=== PATIENT | female | born 1975 | race Caucasian/White ===

== ENCOUNTER 2021-03-13 09:17 | Emergency (ER) | payer OTHER ==
[~2021-03-13] VITALS: Ht 157.5 cm; Wt 54.4 kg
[2021-03-13] MEDS ORDERED: PEPCID AC20 MG PO (23:42)
[2021-03-13] MEDS ORDERED: ZITHROMAX500 MG PO (23:42)
[2021-03-13] MEDS ORDERED: ZINC GLUCONATE100 MG PO (23:42)
[2021-03-13] MEDS ORDERED: MELATONIN10 MG PO (23:42)
[2021-03-13] MEDS ORDERED: VITAMIN C500 M6 PO (23:42)
[2021-03-13] MEDS ORDERED: VITAMIN D375 MCG PO (23:42)
== END 2021-03-14 00:24 | disposition home or self-care (01) ==
LOC: ER 09:17
DX: K21.9 Gastro-esophageal reflux disease without esophagitis (principal); U07.1 COVID-19; J12.82 Pneumonia due to coronavirus disease 2019

== ENCOUNTER 2021-03-15 10:16 | Emergency (ER) | payer OTHER ==
[~2021-03-15] VITALS: Ht 157.5 cm; Wt 54.4 kg
[~2021-03-15 10:16] MED LIST: MELATONIN10 MG PO; PEPCID AC20 MG PO; VITAMIN C500 M6 PO; VITAMIN D375 MCG PO; ZINC GLUCONATE100 MG PO; ZITHROMAX500 MG PO
== END 2021-03-15 17:58 | disposition home or self-care (01) ==
LOC: ER 10:16
DX: U07.1 COVID-19 (principal)

== ENCOUNTER 2021-03-16 13:00 | Outpatient (CLI) | payer OTHER | END 2021-03-16 15:00 | disposition home or self-care (01) | LOC: ASH CLINIC 13:00 | PROVIDERS: ATTEND General Practice | DX: Z23 Encounter for immunization (principal); U07.1 COVID-19 ==

== ENCOUNTER 2024-09-20 07:32 | Outpatient (CLI) | payer OTHER ==
[2024-09-20 09:46] LABS: HEMATOCRIT 42.2 % (36.0-45.00); HEMOGLOBIN 14.7 g/dL (12.0-15.00); MEAN CELL VOLUME 92.1 fL (80.00-100.00); MEAN CORPUSCULAR HEMOGLOBIN 32.1 pg (27.00-32.0); MEAN CORPUSCULAR HGB CONC 34.9 g/dl (32.0-36.0); PLATELET COUNT 282 K/uL (150-450); RED BLOOD COUNT 4.58 M/uL (4.00-6.00)
[2024-09-20 10:16] LABS: ALBUMIN 4.1 gm/dL (3.4-5.0); BILIRUBIN TOTAL 0.6 mg/dL (0.3-1.2); BILIRUBIN,CONJUGATED 0.14 mg/dL (0.0-0.2); BILIRUBIN,UNCONJUGATED 0.46 mg/dL (0.0-0.6); TOTAL PROTEIN 7.6 gm/dL (6.4-8.2)
== END 2024-09-20 07:38 | disposition home or self-care (01) ==
LOC: LAB 07:32
PROVIDERS: ATTEND Internal Medicine Gastroenterology
DX: R94.5 Abnormal results of liver function studies (principal)